=== PATIENT | male | born 1975 ===

== ENCOUNTER 2017-08-12 09:35 | Inpatient (IN) | payer MEDICARE, OTHER ==
--- NOTE | 2017-08-12 10:34 | C.PDOC ---
History Of Present Illness 41 year old male presents to the ED for evaluation of lower abdominal pain associated with nausea which began 4 days ago. Patient reports his pain initially began in his lower abdomen and has now traveled to his right lower quadrant. Patient also reports that he had one episode of dark stool today. He denies fever, chills, vomiting at this time. Time Seen by Provider: 08/12/17 09:55 Chief Complaint (Nursing): Abdominal Pain History Per: Patient History/Exam Limitations: no limitations Onset/Duration Of Symptoms: Days (4) Current Symptoms Are (Timing): Still Present Location Of Pain/Discomfort: RLQ, Other (lower abdomen ) Quality Of Discomfort: "Pain" Associated Symptoms: denies: Fever, Chills, Vomiting Additional History Per: Patient Past Medical History Reviewed: Historical Data, Nursing Documentation, Vital Signs Vital Signs: Last Vital Signs Temp 97.9 F 08/12/17 09:39 Pulse 100 H 08/12/17 15:36 Resp 18 08/12/17 15:36 BP 137/82 08/12/17 15:36 Pulse Ox 97 08/12/17 15:47 - Medical History PMH: Gastritis Surgical History: No Surg Hx Family History: States: Unknown Family Hx - Social History Hx Alcohol Use: No Hx Substance Use: No - Immunization History Hx Tetanus Toxoid Vaccination: No Hx Influenza Vaccination: No Hx Pneumococcal Vaccination: No Review Of Systems Constitutional: Negative for: Fever, Chills Gastrointestinal: Positive for: Nausea, Abdominal Pain (lower abdomen ). Negative for: Vomiting Physical Exam - Physical Exam Appears: Non-toxic, No Acute Distress Skin: Normal Color, Warm, Dry Head: Atraumatic, Normacephalic Eye(s): bilateral: Normal Inspection Oral Mucosa: Moist Neck: Supple Chest: Symmetrical, No Deformity, No Tenderness Cardiovascular: Rhythm Regular, No Murmur Respiratory: Normal Breath Sounds, No Rales, No Rhonchi, No Wheezing Gastrointestinal/Abdominal: Soft, Tenderness (moderate, to right lower quadrant on palpation ), No Guarding, No Rebound Extremity: Normal ROM, Capillary Refill (less than 2 seconds ) Neurological/Psych: Oriented x3, Normal Speech, Normal Cognition Gait: Steady ED Course And Treatment - Laboratory Results Result Diagrams: 08/12/17 10:46 08/12/17 10:46 O2 Sat by Pulse Oximetry: 97 (on RA) Pulse Ox Interpretation: Normal - CT Scan/US CT A/P Other Rad Studies (CT/US): Interpreted By Me, Read By Radiologist, Radiology Report Reviewed CT/US Interpretation: PROCEDURE: CT Abdomen and Pelvis without IV contrast. HISTORY: abd pain. COMPARISON: None available. TECHNIQUE: Contiguous axial images of the abdomen and pelvis. Oral contrast was administered. No IV contrast given. Coronal and Sagittal reformats generated and reviewed. Radiation dose: Total exam DLP = 512.42 mGy-cm. This CT exam was performed using one or more of the following dose reduction techniques: Automated exposure control, adjustment of the mA and/or kV according to patient size, and/ or use of iterative reconstruction technique. FINDINGS: There is limited evaluation of the solid organs without the administration of IV contrast. LOWER THORAX: No visible consolidation, pleural effusion, or pneumothorax. LIVER: Unremarkable unenhanced appearance. GALLBLADDER AND BILE DUCTS: Unremarkable unenhanced appearance. PANCREAS: Unremarkable unenhanced appearance. SPLEEN: Unremarkable unenhanced appearance. ADRENALS: Unremarkable unenhanced appearance. KIDNEYS AND URETERS: No hydronephrosis or obstructing renal calculus. BLADDER: Under distension of the urinary bladder appears otherwise unremarkable. REPRODUCTIVE: Unremarkable. APPENDIX: Dilated tubular structure measuring approximately 12 mm in diameter within the right lower quadrant with extensive associated inflammatory changes consistent with acute appendicitis. Correlate clinically. BOWEL: The stomach is nondistended. The bowel loops appear within normal limits of caliber without evidence of intestinal obstruction. PERITONEUM: No significant free fluid. No definite free air. LYMPH NODES: No bulky lymphadenopathy identified. VASCULATURE: No aortic aneurysm. BONES: Degenerative changes. Intervertebral disc space narrowing at L5-S1. OTHER FINDINGS: None. IMPRESSION: Dilated tubular structure measuring approximately 12 mm in diameter within the right lower quadrant. Extensive associated inflammatory changes are identified. Constellation of findings consistent with acute appendicitis. Correlate clinically. Findings discussed with Natalie Villagomez on 08/12/17 at 2:01 p.m. Medical Decision Making Medical Decision Making: Progress: Bloodwork, UA, CT A/P ordered and reviewed. Toradol IVP administered. The case was discussed with Dr. Johnson who agrees to admit the patient. president and ceo called. Disposition - Disposition Disposition: HOSPITALIZED Disposition Time: 14:19 Condition: FAIR - POA Present On Arrival: None - Clinical Impression Clinical Impression: Acute appendicitis - PA / WINE SALES REPRESENTATIVE / Resident Statement /DO has reviewed & agrees with the documentation as recorded. - Scribe Statement The provider has reviewed the documentation as recorded by the Scribe (Alison Flores) All medical record entries made by the Scribe were at my direction and personally dictated by me. I have reviewed the chart and agree that the record accurately reflects my personal performance of the history, physical exam, medical decision making, and the department course for this patient. I have also personally directed, reviewed, and agree with the discharge instructions and disposition.
[2017-08-12] MEDS ORDERED: Iohexol 240 (50 ml) PO STA (10:36)
[2017-08-12] MEDS ORDERED: Iohexol 240 (50 ml) ONE (10:46)
[2017-08-12 10:58] LABS: BASO # 0.1 K/uL (0.0-0.2); BASO % 0.6 % (0.0-2.0); EOS # 0.1 K/uL (0.0-0.7); EOS % 0.5 % (0.0-4.0); HEMATOCRIT 41.3 % (35.0-51.0); LYMPH # 1.2 K/uL (1.0-4.3); LYMPH % 11.9 % (20.0-40.0); MEAN CELL VOLUME 86.3 fL (80.0-94.0); MEAN CORPUSCULAR HEMOGLOBIN 29.5 pg (27.0-31.0); MEAN CORPUSCULAR HGB CONC 34.1 g/dL (33.0-37.0); MEAN PLATELET VOLUME 7.9 fL (7.2-11.7); MONO # 0.5 K/uL (0.0-0.8); MONO % 4.4 % (0.0-10.0); RED CELL DISTRIBUTION WIDTH 12.9 % (11.5-14.5); WHITE BLOOD COUNT 10.3 K/uL (4.8-10.8)
[2017-08-12 11:22] LABS: ALKALINE PHOSPHATASE 72 U/L (38-126); ALT/SGPT 47 U/L (21-72); AST/SGOT 32 U/L (17-59); BILIRUBIN,TOTAL 0.7 mg/dL (0.2-1.3); BLOOD UREA NITROGEN 13 mg/dL (9-20); CALCIUM 8.7 mg/dl (8.6-10.4); CARBON DIOXIDE 26 mmol/L (22-30); CHLORIDE 99 mmol/L (98-107); GFR AFRICAN-AMERICAN > 60; GLUCOSE,RANDOM 130 mg/dL (75-110); POTASSIUM 3.5 mmol/L (3.6-5.2); SODIUM 135 mmol/L (132-148); TOTAL PROTEIN 8.6 g/dL (6.3-8.3)
[2017-08-12 11:31] LABS: RBC URINE < 1 /hpf (0-3); URINE BILIRUBIN NEGATIVE (NEGATIVE); URINE BLOOD NEGATIVE (NEGATIVE); URINE COLOR Yellow (YELLOW); URINE GLUCOSE (UA) NORMAL (Normal); URINE KETONE NEGATIVE (NEGATIVE); URINE LEUKOCYTE ESTERASE NEG Leu/uL (Negative); URINE PROTEIN NEGATIVE (NEGATIVE); URINE UROBILINOGEN NORMAL mg/dL (0.2-1.0); WBC URINE 1 /hpf (0-5)
--- NOTE | 2017-08-12 14:05 | CT ---
PROCEDURE: CT Abdomen and Pelvis without IV contrast. HISTORY: abd pain COMPARISON: None available TECHNIQUE: Contiguous axial images of the abdomen and pelvis. Oral contrast was administered. No IV contrast given. Coronal and Sagittal reformats generated and reviewed. Radiation dose: Total exam DLP = 512.42 mGy-cm. This CT exam was performed using one or more of the following dose reduction techniques: Automated exposure control, adjustment of the mA and/or kV according to patient size, and/or use of iterative reconstruction technique. FINDINGS: There is limited evaluation of the solid organs without the administration of IV contrast. LOWER THORAX: No visible consolidation, pleural effusion, or pneumothorax. LIVER: Unremarkable unenhanced appearance. GALLBLADDER AND BILE DUCTS: Unremarkable unenhanced appearance. PANCREAS: Unremarkable unenhanced appearance. SPLEEN: Unremarkable unenhanced appearance. ADRENALS: Unremarkable unenhanced appearance. KIDNEYS AND URETERS: No hydronephrosis or obstructing renal calculus. BLADDER: Under distension of the urinary bladder appears otherwise unremarkable. REPRODUCTIVE: Unremarkable. APPENDIX: Dilated tubular structure measuring approximately 12 mm in diameter within the right lower quadrant with extensive associated inflammatory changes consistent with acute appendicitis. Correlate clinically. BOWEL: The stomach is nondistended. The bowel loops appear within normal limits of caliber without evidence of intestinal obstruction. PERITONEUM: No significant free fluid. No definite free air. LYMPH NODES: No bulky lymphadenopathy identified. VASCULATURE: No aortic aneurysm. BONES: Degenerative changes. Intervertebral disc space narrowing at L5-S1. OTHER FINDINGS: None. IMPRESSION: Dilated tubular structure measuring approximately 12 mm in diameter within the right lower quadrant. Extensive associated inflammatory changes are identified. Constellation of findings consistent with acute appendicitis. Correlate clinically. Findings discussed with Natalie Villagomez on 08/12/17 at 2:01 p.m.
--- NOTE | 2017-08-12 17:10 | CP.PCM.HP ---
History of Present Illness - History of Present Illness History of Present Illness: General Surgery note for Dr. Johnson CC: RLQ abdominal pain HPI: 41 year old male with PMHx of GERD presents to the ED complaining of severe RLQ abdominal pain starting 4 days ago. The pain is constant, described as throbbing, rated 10/10, and does not radiate. The pain is worse with movement and to palpation. Associated symptoms include two days of subjective fever, chills, loss of appetite, bloating, loose stools. Patient states he tried taking Pepto-Bismol at home but it did not help. Patient last ate and drank at 8 AM this morning. Patient denies recent trauma, travel, or recent illness. Denies nausea, vomiting, chest pain, SOB, bloody stool. Of note, patient states he had similar symptoms 1.5 years ago while he was in [facility] except symptoms were worse with nausea, vomiting, sweats, and dizziness. At the time, he was told he had "appendicitis" because he was tender in the RLQ but no CT was done. He was soon released from [facility] and never followed up and the symptoms reportedly resolved on their own without any treatment or intervention. On arrival to ED, patient given Toradol which improved the pain from 10/10 down to 3/10. CT abdomen shows 12mm appendix with inflammation and stranding. PMHx: GERD - occasionally takes omeprazole SurgHx: bunion removal on left foot (May 2017), traumatic nose injury repair ( ) Allergies: seafood FamHx: grandmother had [place], mother and aunt have "fast heartbeat" SocialHx: lives with mother and fiance; denies tobacco/alcohol/illicit drug use ; unemployed, on disability for "memory loss issues" reportedly from childhood head injury Present on Admission - Present on Admission Any Indicators Present on Admission: No Review of Systems - Constitutional Constitutional: Chills, Fever. absent: Weakness - EENT Eyes: absent: Change in Vision Ears: absent: Decreased Hearing Nose/Mouth/Throat: absent: Dysphagia - Cardiovascular Cardiovascular: absent: Chest Pain, Edema, Rapid Heart Rate - Respiratory Respiratory: absent: Cough, Dyspnea, Dyspnea on Exertion - Gastrointestinal Gastrointestinal: Abdominal Pain, Bloating, Loose Stools. absent: Nausea, Vomiting - Genitourinary Genitourinary: absent: Difficulty Urinating, Dysuria, Urinary Frequency - Integumentary Integumentary: absent: Erythema, Rash - Neurological Neurological: absent: Abnormal Hearing, Syncope Past Patient History - Infectious Disease Hx of Infectious Diseases: None - Past Social History Smoking Status: Never Smoked - GASTROINTESTINAL Hx Gastritis: Yes - PSYCHIATRIC Hx Substance Use: No - SURGICAL HISTORY Hx Surgeries: No - ANESTHESIA Hx Anesthesia: No Meds Allergies/Adverse Reactions: Allergies Allergy/AdvReac Type Severity Reaction Status Date / Time seafood Allergy RASH Uncoded 08/12/17 09:41 Physical Exam - Constitutional Appears: Well, Non-toxic, No Acute Distress - Head Exam Head Exam: ATRAUMATIC, NORMAL INSPECTION, NORMOCEPHALIC - Eye Exam Eye Exam: EOMI. absent: Scleral icterus - ENT Exam ENT Exam: Mucous Membranes Moist - Neck Exam Neck exam: Positive for: Full Rom. Negative for: Lymphadenopathy - Respiratory Exam Respiratory Exam: Clear to Auscultation Bilateral, NORMAL BREATHING PATTERN. absent: Prolonged Expiratory Phase, Rales, Rhonchi, Wheezes - Cardiovascular Exam Cardiovascular Exam: Tachycardia, REGULAR RHYTHM, +S1, +S2. absent: Systolic Murmur - GI/Abdominal Exam GI & Abdominal Exam: Normal Bowel Sounds, Soft, Tenderness (mild RLQ tenderness at McBurney's point). absent: Distended, Firm, Guarding, Hernia, Mass, Rebound , Rigid Additional comments: negative Rovsing sign, negative Aguilar sign - Extremities Exam Extremities exam: Positive for: full ROM, normal capillary refill. Negative for : pedal edema - Back Exam Back exam: absent: CVA tenderness (L), CVA tenderness (R) - Neurological Exam Neurological exam: Alert, Oriented x3 - Psychiatric Exam Psychiatric exam: Normal Affect, Normal Mood - Skin Skin Exam: Dry, Normal Color, Warm Results - Vital Signs Recent Vital Signs: Last Vital Signs Temp 97.9 F 08/12/17 09:39 Pulse 100 H 08/12/17 15:36 Resp 18 08/12/17 15:36 BP 137/82 08/12/17 15:36 Pulse Ox 97 08/12/17 15:49 - Labs Result Diagrams: 08/12/17 10:46 08/12/17 10:46 Labs: Laboratory Results - last 24 hr 08/12/17 08/12/17 08/12/17 10:46 10:46 11:17 WBC 10.3 RBC 4.79 Hgb 14.1 Hct 41.3 MCV 86.3 MCH 29.5 MCHC 34.1 RDW 12.9 Plt Count 247 MPV 7.9 Neut % (Auto) 82.6 H Lymph % (Auto) 11.9 L Angelina % (Auto) 4.4 Eos % (Auto) 0.5 Baso % (Auto) 0.6 Neut # 8.5 H Lymph # 1.2 Angelina # 0.5 Eos # 0.1 Baso # 0.1 Sodium 135 Potassium 3.5 L Chloride 99 Carbon Dioxide 26 Anion Gap 14 BUN 13 Creatinine 0.8 Est GFR ( Amer) > 60 Est GFR (Non-Af Amer) > 60 Random Glucose 130 H Calcium 8.7 Total Bilirubin 0.7 AST 32 ALT 47 Alkaline Phosphatase 72 Total Protein 8.6 H Albumin 4.3 Globulin 4.3 H Albumin/Globulin Ratio 1.0 Lipase 46 Urine Color Yellow Urine Clarity Clear Urine pH 5.0 Ur Specific [place] 1.024 Urine Protein Negative Urine Glucose (UA) Normal Urine Ketones Negative Urine Blood Negative Urine Nitrate Negative Urine Bilirubin Negative Urine Urobilinogen Normal Ur Leukocyte Esterase Neg Urine WBC (Auto) 1 Urine RBC (Auto) < 1 Assessment & Plan - Assessment and Plan (Free Text) Assessment: 41 year old male with PMHx of GERD with severe RLQ abdominal pain x4 days who was found to have acute appendicitis - Afebrile, mild tachycardia - No leukocytosis - Laparoscopic appendectomy, possible open today - Procedure and all risks explained to patient, all questions were answered, written consent was obtained - NPO, last food and drink at 8AM today - IV Fluids - IV Abx: Zosyn - Zofran 4mg IV Q4H - Morphine PRN pain - Discussed with Dr. Alex Mack PGY-3 - Date & Time Date: 08/12/17 Time: 17:00
[2017-08-12] MEDS ORDERED: Sodium Chloride 0.9% 1,000 ML ONE (18:41)
[2017-08-12] MEDS: Sodium Chloride 0.9% 1,000 ML IV SCH (18:49)
[2017-08-12 19:10] LABS: INR 1.2
[2017-08-12] MEDS ORDERED: Midazolam 2 MG/2 ML VIAL ONE (20:45)
[2017-08-12] MEDS ORDERED: Lidocaine Hydrochloride 5 ML INJ ONE (20:46)
[2017-08-12] MEDS ORDERED: Rocuronium 10 mg/ml (5 ml) ONE (20:46)
[2017-08-12] MEDS ORDERED: Succinylcholine Chloride 20 mg/ml Syr (5 ml) IV ONE (20:46)
[2017-08-12] MEDS ORDERED: Propofol 10 mg/ml Inj (20 ML) ONE (20:47)
[2017-08-12] MEDS ORDERED: Sodium Chloride 0.9% 1,000 ML IV ONE ×2 (20:47→22:48)
[2017-08-12] MEDS: Piperacill/Tazo 3.375gm in Dex 3.375 GM/50 ML BAG IVPB SCH (21:00)
[2017-08-12] MEDS ORDERED: Neostigmine Methylsulfate 3mg/3ml Syringe IV ONE (21:54)
--- NOTE | 2017-08-12 22:18 | PCM.SURG1 ---
Surgeon's Initial Post Op Note - Surgeon's Notes Surgeon: Alex First Mate: Pardeep PGY3 Type of Anesthesia: General Endo Pre-Operative Diagnosis: Appendicitis Operative Findings: acutely inflamed appendix Post-Operative Diagnosis: same Operation Performed: laparoscopic appendectomy Specimen/Specimens Removed: appendix Estimated Blood Loss: EBL {In ML}: 20 Blood Products Given: N/A Drains Used: No Drains Post-Op Condition: Good Date of Surgery/Procedure: 08/12/17 Time of Surgery/Procedure: 22:19
[2017-08-12] MEDS ORDERED: HYDROmorphone 0.5 mg/0.5 ml ISec IVP PRN (22:20)
[2017-08-12] MEDS ORDERED: Oxycodone/Acetaminophen 5/325 mg Tab PO PRN (22:23)
[2017-08-13] MEDS: Piperacill/Tazo 3.375gm in Dex 3.375 GM/50 ML BAG IVPB SCH ×3 (01:32→12:33)
[2017-08-13] MEDS: Sodium Chloride 0.9% 1,000 ML IV SCH ×3 (01:45→10:31)
[2017-08-13 02:05] VITALS: RESP 20
[2017-08-13 07:33] LABS: BASO % 0.1 % (0.0-2.0); HEMATOCRIT 37.8 % (35.0-51.0); LYMPH # 0.6 K/uL (1.0-4.3); LYMPH % 6.8 % (20.0-40.0); MEAN CELL VOLUME 86.7 fL (80.0-94.0); MEAN CORPUSCULAR HGB CONC 34.6 g/dL (33.0-37.0); MEAN PLATELET VOLUME 7.4 fL (7.2-11.7); MONO # 0.2 K/uL (0.0-0.8); MONO % 1.9 % (0.0-10.0); PLATELET COUNT 250 K/uL (130-400); RED CELL DISTRIBUTION WIDTH 12.8 % (11.5-14.5)
--- NOTE | 2017-08-13 07:47 | CP.PCM.DIS ---
Provider - Provider Date of Admission: 08/12/17 14:20 Attending physician: Gonzalo Johnson MD Time Spent in preparation of Discharge (in minutes): 20 Diagnosis - Discharge Diagnosis (1) Acute appendicitis Status: Acute Hospital Course - Lab Results Lab Results: Most Recent Lab Values WBC 9.0 K/uL (4.8-10.8) 08/13/17 07:18 RBC 4.36 Mil/uL (4.40-5.90) L 08/13/17 07:18 Hgb 13.1 g/dL (12.0-18.0) 08/13/17 07:18 Hct 37.8 % (35.0-51.0) 08/13/17 07:18 MCV 86.7 fL (80.0-94.0) 08/13/17 07:18 MCH 30.0 pg (27.0-31.0) 08/13/17 07:18 MCHC 34.6 g/dL (33.0-37.0) 08/13/17 07:18 RDW 12.8 % (11.5-14.5) 08/13/17 07:18 Plt Count 250 K/uL (130-400) 08/13/17 07:18 MPV 7.4 fL (7.2-11.7) 08/13/17 07:18 Neut % (Auto) 91.2 % (50.0-75.0) H 08/13/17 07:18 Lymph % (Auto) 6.8 % (20.0-40.0) L 08/13/17 07:18 [place] % (Auto) 1.9 % (0.0-10.0) 08/13/17 07:18 Eos % (Auto) 0.0 % (0.0-4.0) 08/13/17 07:18 Baso % (Auto) 0.1 % (0.0-2.0) 08/13/17 07:18 Neut # 8.2 K/uL (1.8-7.0) H 08/13/17 07:18 Lymph # 0.6 K/uL (1.0-4.3) L 08/13/17 07:18 [place] # 0.2 K/uL (0.0-0.8) 08/13/17 07:18 Eos # 0.0 K/uL (0.0-0.7) 08/13/17 07:18 Baso # 0.0 K/uL (0.0-0.2) 08/13/17 07:18 PT 12.9 SECONDS (9.7-12.2) H 08/12/17 18:53 INR 1.2 08/12/17 18:53 APTT 30 SECONDS (21-34) 08/12/17 18:53 Sodium 135 mmol/L (132-148) 08/12/17 10:46 Potassium 3.5 mmol/L (3.6-5.2) L 08/12/17 10:46 Chloride 99 mmol/L (98-107) 08/12/17 10:46 Carbon Dioxide 26 mmol/L (22-30) 08/12/17 10:46 Anion Gap 14 (10-20) 08/12/17 10:46 BUN 13 mg/dL (9-20) 08/12/17 10:46 Creatinine 0.8 mg/dL (0.8-1.5) 08/12/17 10:46 Est GFR ( Amer) > 60 08/12/17 10:46 Est GFR (Non-Af Amer) > 60 08/12/17 10:46 Random Glucose 130 mg/dL (75-110) H 08/12/17 10:46 Calcium 8.7 mg/dl (8.6-10.4) 08/12/17 10:46 Total Bilirubin 0.7 mg/dL (0.2-1.3) 08/12/17 10:46 AST 32 U/L (17-59) 08/12/17 10:46 ALT 47 U/L (21-72) 08/12/17 10:46 Alkaline Phosphatase 72 U/L (38-126) 08/12/17 10:46 Total Protein 8.6 g/dL (6.3-8.3) H 08/12/17 10:46 Albumin 4.3 g/dL (3.5-5.0) 08/12/17 10:46 Globulin 4.3 gm/dL (2.2-3.9) H 08/12/17 10:46 Albumin/Globulin Ratio 1.0 (1.0-2.1) 08/12/17 10:46 Lipase 46 U/L (23-300) 08/12/17 10:46 Urine Color Yellow (YELLOW) 08/12/17 11:17 Urine Clarity Clear (Clear) 08/12/17 11:17 Urine pH 5.0 (5.0-8.0) 08/12/17 11:17 Ur Specific [place] 1.024 (1.003-1.030) 08/12/17 11:17 Urine Protein Negative mg/dL (NEGATIVE) 08/12/17 11:17 Urine Glucose (UA) Normal mg/dL (Normal) 08/12/17 11:17 Urine Ketones Negative mg/dL (NEGATIVE) 08/12/17 11:17 Urine Blood Negative (NEGATIVE) 08/12/17 11:17 Urine Nitrate Negative (NEGATIVE) 08/12/17 11:17 Urine Bilirubin Negative (NEGATIVE) 08/12/17 11:17 Urine Urobilinogen Normal mg/dL (0.2-1.0) 08/12/17 11:17 Ur Leukocyte Esterase Neg [place]/uL (Negative) 08/12/17 11:17 Urine WBC (Auto) 1 /hpf (0-5) 08/12/17 11:17 Urine RBC (Auto) < 1 /hpf (0-3) 08/12/17 11:17 - Hospital Course Hospital Course: 41M w. appendicitis underwent laparoscopic appendectomy. Post-op course uncomplicated. Pain controlled. Pt voiding and ambulating w. out issue. Clear for D/C from surgical standpoint Discharge Exam - Head Exam Head Exam: ATRAUMATIC, NORMAL INSPECTION, NORMOCEPHALIC - Eye Exam Eye Exam: EOMI - ENT Exam ENT Exam: Mucous Membranes Moist - Neck Exam Neck exam: Full Rom - Respiratory Exam Respiratory Exam: NORMAL BREATHING PATTERN. absent: Accessory Muscle Use, Respiratory Distress - GI/Abdominal Exam GI & Abdominal Exam: Soft, Tenderness (delores-incisional ). absent: Distended, Firm, Guarding, Rigid Additional comments: dressing in place, C/D/I - Neurological Exam Neurological exam: Alert, Oriented x3 - Psychiatric Exam Psychiatric exam: Normal Affect, Normal Mood - Skin Skin Exam: Dry, Normal Color, Warm Discharge Plan - Discharge Medications Prescriptions: Ketorolac Tromethamine [Toradol] 10 mg PO Q6 PRN #20 tab PRN Reason: Pain, Moderate (4-7) - Follow Up Plan Condition: FAIR Disposition: HOME/ ROUTINE Patient education suggested?: Yes Instructions: Laparoscopic Appendectomy (DC) Additional Instructions: Activity as tolerated. Follow up w. Dr. Johnson in 1-2 weeks. Return to ED if symptoms worsen. Referrals: Gonzalo Johnson MD [Staff Provider] -
[2017-08-13 07:51] LABS: BLOOD UREA NITROGEN 12 mg/dL (9-20); CALCIUM 8.3 mg/dl (8.6-10.4); CARBON DIOXIDE 23 mmol/L (22-30); CHLORIDE 101 mmol/L (98-107); GFR AFRICAN-AMERICAN > 60; GLUCOSE,RANDOM 126 mg/dL (75-110); POTASSIUM 4.1 mmol/L (3.6-5.2); SODIUM 136 mmol/L (132-148)
[2017-08-13 08:23] VITALS: BP 109/68; PULSE 105; TEMP 99; O2SAT 95
[2017-08-13 09:25] LABS: NEUTROPHIL 88 % (50-75); TOTAL CELLS COUNTED 100
[2017-08-13] MEDS ORDERED: Pneumococcal 23-Valent Vaccine IM ONE (10:00)
[2017-08-13] MEDS ORDERED: Influenza Vaccine 60 mcg/0.5 mL SYR (4YR UP) IM ONE (10:00)
--- NOTE | 2017-08-15 13:02 | OP ---
PROCEDURE DATE: 08/12/2017 PREOPERATIVE DIAGNOSIS: Acute appendicitis. POSTOPERATIVE DIAGNOSIS: Acute appendicitis. PROCEDURE: Laparoscopic appendectomy. SURGEON: Gonzalo Johnson MD. RESIDENTIAL CONCIERGE: Pardeep. TYPE OF ANESTHESIA: General. DESCRIPTION OF OPERATION: With the patient in the supine position under adequate general anesthesia, the abdomen was prepped and draped in the usual sterile manner. Veress needle puncture was performed in the umbilicus with insufflation to 15-cm water pressure of CO2 and a 10-mm laparoscopic trocar was inserted via an infraumbilical incision. Under direct vision, 5 and 12 mm trocars were inserted in the left lower quadrant. The appendix was identified lying against the lateral abdominal wall in the right iliac fossa and with gentle traction, the appendix was freed from these attachments as well as attachments to the portions of the terminal ilium. The distal portion of the appendix primary was markedly elongated, tortuous and thickened consistent with acute appendicitis. There was no evidence of perforation. The mesoappendix was divided using the LigaSure and a an Endo KAMRYN stapler was then used to divide the appendix close to the cecum. The operative site was examined for hemostasis. The appendix was placed in a specimen retrieval bag and removed via the 12-mm port site. The right gutter and pelvis were irrigated and suctioned and the pneumoperitoneum was released and the trocars were removed. The umbilical and 12-mm port sites were closed with [id number] fascial sutures of 0-Vicryl. All incisions were closed with 4-0 subcuticular Monocryl and Steri-Strips. Dry sterile dressings were applied. The patient tolerated the procedure well and transferred to recovery room. Estimated blood loss for the procedure was 20 mL. Gonzalo Johnson MD MTDD
== END 2017-08-13 16:29 | disposition home or self-care (01) | DRG 343 ==
LOC: C.ER 09:35 → C.9E 14:20 → C.3T 22:20
PROVIDERS: ADMIT Specialist; ATTEND Specialist
PROC: 0DTJ4ZZ Resection of Appendix, Percutaneous Endoscopic Approach (ICD-10-PCS; principal; 2017-08-12 19:45)
DX: K35.80 Unspecified acute appendicitis (principal); K21.9 Gastro-esophageal reflux disease without esophagitis; K29.70 Gastritis, unspecified, without bleeding; Z82.49 Family history of ischemic heart disease and other diseases of the circulatory system